=== PATIENT | male | born 1960 | race Caucasian/White ===

== ENCOUNTER 2020-08-26 10:30 | Outpatient (REF) | payer OTHER, SELFPAY ==
[2020-08-26 14:07] LABS: Erythrocyte Sedimentation Rate 5 MM/HR (0-15)
[2020-08-26 14:27] LABS: C Reactive Protein 0.15 mg/dL (< or = 0.50)
[2020-08-26 15:14] LABS: Rheumatoid Factor < 15.0 IU/mL (<15.0)
[2020-08-27 12:32] LABS: Antibody to SS-A Antigen <1.0 NEG AI (<1.0 NEG); Antibody to SS-B Antigen <1.0 NEG AI (<1.0 NEG)
[2020-08-28 03:57] LABS: Cyclic Citrullinated Peptide <16 UNITS
[2020-08-28 13:56] LABS: Anti Nuclear Antibody Screen NEGATIVE (NEGATIVE)
== END 2020-08-26 10:31 | disposition home or self-care (01) ==
LOC: HO.MANLDS 10:30
PROVIDERS: PCP Physician Assistant; Visit Provider Physician Assistant
DX: M25.50 Pain in unspecified joint (principal)
CPT/HCPCS: 36415; 85652; 86038; 86039; 86140; 86200; 86235; 86431

== ENCOUNTER 2020-10-02 09:28 | Outpatient (REF) | payer OTHER, SELFPAY ==
[2020-10-02 12:11] LABS: SARS COV2 IgG Negative (Negative)
[2020-10-03 21:18] LABS: Lyme Abs Screen <0.90 index
== END 2020-10-02 09:29 | disposition home or self-care (01) ==
LOC: HO.MANLDS 09:28
PROVIDERS: PCP Internal Medicine; Visit Provider Internal Medicine
DX: Z20.828 Contact with and (suspected) exposure to other viral communicable diseases (principal); M25.50 Pain in unspecified joint
CPT/HCPCS: 86618; 86769